=== PATIENT | female | born 1955 | race Caucasian/White ===

== ENCOUNTER → 2016-12-08 | Outpatient (CLI) | payer OTHER ==
[~2016-12-08] MED LIST: ASCO500 PO; CELE200C PO; ESTR8.1S TOP; GLUC750T13 PO; LATA0.00 OP; PRIS50TA PO; RANI150T PO; SYNT200T PO; TAB-TAB PO; TIMO0.5S29 EACH EYE
[2016-12-08 12:07] LABS: ANION GAP 5 MEQ/L (5-15); AST (GOT) 15 U/L (15-37); BICARBONATE 26.7 MEQ/L (21.0-32.0); BLOOD UREA NITROGEN 18 MG/DL (7-18); CHLORIDE 108 MEQ/L (98-107); GLOMERULAR FILTRATION RATE 92 ML/MIN (>89); GLUCOSE,FASTING 90 MG/DL (74-99); POTASSIUM 4.7 MEQ/L (3.5-5.1); SODIUM (NA) 140 MEQ/L (136-145)
[2016-12-08 12:10] LABS: ALKALINE PHOSPHATASE 89 U/L (45-117); ALT (GPT) 18 U/L (10-53); HDL CHOLESTEROL 51.7 MG/DL (40.0-60.0); LDL CHOLESTEROL 88 MG/DL (0-99); TOTAL BILIRUBIN ADULT 0.8 MG/DL (0.2-1.0)
[2016-12-08 12:14] LABS: FREE T3 2.38 PG/ML (2.18-3.98); FREE T4 1.13 NG/DL (0.76-1.46)
== END ==
LOC: CLAB 11:09
PROVIDERS: ATTEND Family Medicine
DX: I10 Essential (primary) hypertension (principal); E03.9 Hypothyroidism, unspecified
CPT/HCPCS: 36415; 80053; 80061; 84439; 84443; 84481

== ENCOUNTER → 2017-05-27 | Outpatient (CLI) | payer OTHER ==
[2017-05-27 12:18] LABS: FREE T3 2.96 PG/ML (2.18-3.98); FREE T4 1.22 NG/DL (0.76-1.46)
[2017-05-27 12:36] LABS: ALT (GPT) 25 U/L (10-53); ANION GAP 5 MEQ/L (5-15); AST (GOT) 16 U/L (15-37); BICARBONATE 28.3 MEQ/L (21.0-32.0); BLOOD UREA NITROGEN 17 MG/DL (7-18); CHLORIDE 107 MEQ/L (98-107); GLOMERULAR FILTRATION RATE 89 ML/MIN (>89); GLUCOSE,FASTING 93 MG/DL (74-99); POTASSIUM 4.2 MEQ/L (3.5-5.1); SODIUM (NA) 140 MEQ/L (136-145)
[2017-05-27 12:38] LABS: ALKALINE PHOSPHATASE 92 U/L (45-117)
== END ==
LOC: CLAB 11:05
DX: E11.65 Type 2 diabetes mellitus with hyperglycemia (principal); I10 Essential (primary) hypertension
CPT/HCPCS: 36415; 80053; 84439; 84443; 84481

== ENCOUNTER → 2017-11-03 | Outpatient (CLI) | payer OTHER ==
[~2017-11-03] MED LIST changes: +DESV25TA PO; +ESTR0.62 VAGINAL; +EVAM1.532 TOPICAL; +GLUC750C PO; +LATA0.002 EACH EYE; +LEVO.2 PO; +LISI10TA3 PO; +MULT-65 PO; +TIMO0.5S30 EACH EYE; +VITA500T83 PO
[2017-11-03 13:55] LABS: BILIRUBIN, URINE NEG (NEG); BLOOD, URINE NEG (NEG); GLUCOSE,URINE NEG (NEG); KETONE, URINE NEG (NEG); MUCUS URINE FEW /lpf (OCC); NITRITE,URINE NEG (NEG); PH, URINE 5.5 (5.0-8.5); SQUAMOUS EPITHELIAL CELL URINE 2 /hpf (0-5); URINE COLOR YELLOW (YELLW/STRAW); URINE LEUKOCYTE ESTERASE NEG (NEG)
[2017-11-03 13:59] LABS: AUTOMATED NEUTROPHIL # 3.2 TH/MM3 (1.8-7.7); BASOPHIL % 0.6 % (0.0-2.0); EOSINOPHIL # 0.5 TH/MM3 (0-0.4); EOSINOPHIL % 8.1 % (0.0-4.0); HEMATOCRIT 42.3 % (35.0-46.0); HEMOGLOBIN 14.1 GM/DL (11.6-15.3); LYMPH % 25.7 % (9.0-44.0); LYMPHOCYTE # 1.4 TH/MM3 (1.0-4.8); MEAN CELL VOLUME 92.4 FL (80.0-100.0); MEAN CORPUSCULAR HEMOGLOBIN 30.8 PG (27.0-34.0); MEAN CORPUSCULAR HGB CONC 33.4 % (32.0-36.0); MEAN PLATELET VOLUME 9.2 FL (7.0-11.0); MONO % 8.4 % (0.0-8.0); MONOCYTE # 0.5 TH/MM3 (0-0.9); NEUT % 57.2 % (16.0-70.0); PLATELET COUNT 269 TH/MM3 (150-450); RED BLOOD COUNT 4.58 MIL/MM3 (4.00-5.30); RED CELL DISTRIBUTION WIDTH 13.9 % (11.6-17.2); WHITE BLOOD COUNT 5.6 TH/MM3 (4.0-11.0)
[2017-11-03 14:19] LABS: ALBUMIN 3.8 GM/DL (3.4-5.0); AST (GOT) 15 U/L (15-37); BICARBONATE 28.7 MEQ/L (21.0-32.0); BLOOD UREA NITROGEN 18 MG/DL (7-18); CHLORIDE 108 MEQ/L (98-107); CREATININE 0.69 MG/DL (0.50-1.00); GLOMERULAR FILTRATION RATE 86 ML/MIN (>89); GLUCOSE,FASTING 86 MG/DL (74-99); SODIUM (NA) 142 MEQ/L (136-145)
[2017-11-03 14:23] LABS: ALKALINE PHOSPHATASE 79 U/L (45-117); ALT (GPT) 24 U/L (10-53); TOTAL BILIRUBIN ADULT 0.9 MG/DL (0.2-1.0); TOTAL PROTEIN 7.2 GM/DL (6.4-8.2)
--- NOTE | 2017-11-04 08:58 | EKG ---
Date Performed: 11/03/2017 Time Performed: 13:36:33 PTAGE: 62 years EKG: SINUS BRADYCARDIA BORDERLINE ECG PREVIOUS TRACING : 06/21/2014 11.41 Since the previous tracing, no significant change noted DOCTOR: Lalito Nava Interpretating Date/Time 11/04/2017 08:53:07
== END ==
LOC: CPRE 13:07
PROVIDERS: ATTEND Obstetrics & Gynecology Gynecology
DX: Z01.812 Encounter for preprocedural laboratory examination (principal); Z01.810 Encounter for preprocedural cardiovascular examination; N39.3 Stress incontinence (female) (male); R00.1 Bradycardia, unspecified
CPT/HCPCS: 36415; 80053; 81001; 85025; 93005

== ENCOUNTER → 2017-11-18 | Day surgery (SDC) | payer OTHER ==
--- NOTE | 2017-11-03 16:05 | MH ---
cc: Uzair Dennis MD DATE OF ADMISSION: 11/18/2017 REASON FOR ADMISSION: Transobturator sling, vaginal repair, skin tag removal. HISTORY OF PRESENT ILLNESS: The patient is a 62-year-old white female, 6, para 1, who had a hysterectomy and is having issues with stress urinary incontinence. The patient has had urodynamic testing that shows a leak at about 50% capacity. She also has some degree of enterocele stage II and wants to proceed with surgical correction. PAST MEDICAL HISTORY: Hypertension, gastroesophageal reflux disease and hypothyroidism, otherwise negative for heart, lung, liver disease, diabetes or stroke. MEDICATIONS: Celebrex 200 mg every day, estradiol vaginal cream, Claritin 10 mg daily, lisinopril 10 mg daily, Pristiq 50 mg daily, Synthroid 200 mcg daily, Zantac 150 mg every day. ALLERGIES: BETADINE CAUSES RASH. CODEINE, LATEX. PAST SURGICAL HISTORY: Laparoscopic supracervical hysterectomy, ocular procedure right eye. OB HISTORY: Five spontaneous ABs. One full-term delivery. SMOG TECHNICIAN HISTORY: No STDs or abnormal Pap smears. SOCIAL HISTORY: Works as a nurse. Does not use alcohol, tobacco, caffeine. FAMILY HISTORY: Noncontributory. REVIEW OF SYSTEMS: As above. No chest pain, orthopnea, PND. No nausea, vomiting, fever or chills. No vaginal bleeding or discharge. PHYSICAL EXAMINATION: VITAL SIGNS: She is afebrile. Vital signs are stable. Her blood pressure is 140/90. Height is 5 feet 9 inches, weight 180, BMI is 26. GENERAL: Alert and oriented x 3, in no acute distress, no signs of cognitive dysfunction or depression. HEENT: Within normal limits. NECK: Supple. No JVD. CHEST: Clear. HEART: Regular rate and rhythm. ABDOMEN: Soft, nontender. No hepatosplenomegaly. No CVA tenderness. PELVIC: Exam will be detailed under anesthesia. EXTREMITIES: Normal skin without rashes. NEUROLOGIC: Nonfocal. No DVT signs. ASSESSMENT AND PLAN: The patient with stress urinary incontinence with a leak at approximately 200 mL of capacity of little bit over 400. We discussed risks, benefits, and alternatives of planned procedure including damage to surrounding organs, bleeding, infection, failure of repair and also possibility of urinary retention, erosion, dyspareunia, were discussed. The patient has made informed choice to proceed. The patient also wants to have pelvic repair performed for the enterocele. She is aware of the risks, benefits and alternatives and issues regarding dyspareunia, failure of repair, pelvic pain. She has a small skin tag in the thigh and we will remove that as well at the same setting. The patient HAS ALLERGY TO BETADINE but we will be able to use Hibiclens since the vagina is not a mucous membrane. The vaginal tissues are squamous epithelium and there is no contraindication to the use of Hibiclens in the vagina. Regarding antibiotic prophylaxis, we will use Ancef 2 grams and deep venous thrombosis prophylaxis with sequential compression device. Anticipate outpatient procedure. Uzair Dennis MD CJS/TL , 03:27 PM , 04:04 PM
[~2017-11-18] VITALS: Ht 175.3 cm; Wt 86.1 kg
[~2017-11-18] MED LIST changes: +ACETAMINOPHEN 1000 MG/100 ML 100 ML IV ONE; +APREPITANT 40 MG CAP ONE; -ASCO500 PO; +CHLORHEXIDINE GLUCONATE 2 % 1 PACK (2 CLOTHS) TOPICAL PRN; +DEXAMETHASONE SOD PHOS 4 MG/ML VIAL IV ONE; +DO NOT ADM ANY ANTICOAGULANT DRUGS PRN; -ESTR8.1S TOP; +ESTROGENS CONJUGATED VAG CREA 15 APPL/30 GM TUBE ONE; +FLUORESCEIN SOD 10% SOLN 500 MG/5 ML AMP ONE; -GLUC750T13 PO; +GLYCOPYRROLATE 1 MG/5 ML SYRINGE IV PUSH ONE; +KETOROLAC TROMETHAMINE 30 MG/ML (IVP) VIAL IV PUSH ONE; +KETOROLAC TROMETHAMINE 60 MG/2 ML (IM) VIAL IM PRN; +LACTATED RINGER'S 1000 ML IV PRN; -LATA0.00 OP; +LIDOCAINE 1%/EPINEPHrine 1:100,000 SOLN 50 ML VIAL ONE; +LIDOCAINE HCL 1% PF 5 ML SYRINGE OTHER ONE; +METHYLENE BLUE 10 MG/ML VIAL ONE; +METOPROLOL TARTRATE 25 MG TAB PO PRN; +ONDANSETRON HCL 4 MG/2 ML VIAL IV ONE; +ONDANSETRON ODT 4 MG TAB PO PRN; -PRIS50TA PO; +PROPOFOL 200 MG/20 ML AMP IV ONE; +SODIUM CHLORID 0.9% 500 ML IV PRN; -SYNT200T PO; -TAB-TAB PO; -TIMO0.5S29 EACH EYE; +ceFAZolin 2 GM/DEX PREMIX 50 ML IV SCH; +ePHEDrine/NS 25 MG/5 ML SYRINGE IV ONE; +fentaNYL CITRATE 250 MCG/5 ML AMP ONE; +traMADol HCL 50 MG TAB PO PRN
[2017-11-18 10:15] VITALS: TEMP 97
--- NOTE | 2017-11-18 10:45 | MP ---
cc: Uzair Dennis MD DATE OF OPERATION: 11/18/2017 PREOPERATIVE DIAGNOSIS: 1. Stress urinary incontinence, code N93.3. 2. Rectocele and enterocele. 3. Midline cystocele. 4. Skin tag left upper thigh. POSTOPERATIVE DIAGNOSIS: 1. Stress urinary incontinence, code N93.3. 2. Rectocele and enterocele. 3. Midline cystocele. 4. Skin tag left upper thigh. PROCEDURE: 1. Transobturator sling using [place] [employer] polypropylene sling. 2. Anterior/posterior repair. 3. Removal of skin tag less than 1 cm. SURGEON: Uzair Dennis MD. ANESTHESIA: Laryngeal mask. INSPECTOR PRODUCTION PLASTIC PARTS: Caroline staff x 2. FLUIDS: 1000 mL crystalloid. URINE OUTPUT: 400 mL. FINDINGS: External genitalia, a normal Pop Q score Aa is -1, Ap is -1, point C is -8, total vaginal length is 10, general hiatus is 5, perineal body is 5. Following repair, Aa is -3, Ap is -3, point C is -8. Cystoscopy shows normal trigone, good coaptation of urethra, ureteral orifice patent x 2. Dome and base of bladder normal. Rectal exam, normal following repair. SPECIMENS: None. COMPLICATIONS: None. DISPOSITION: To recovery room stable. COUNTS: Needle and sponge counts correct. DRAINS: Damian catheter. ANTIBIOTIC PROPHYLAXIS: Ancef 2 grams. DVT PROPHYLAXIS: Sequential compression device. SUMMARY OF INDICATIONS FOR THE PROCEDURE: Patient with stress urinary incontinence with documented leak at approximately 50% capacity. She also has a symptomatic second degree rectocele and enterocele. She also has a skin tag in the upper left thigh that is bothersome to her. DESCRIPTION OF THE PROCEDURE: The patient was taken to the operating theater, identified, prepped and draped in fashion appropriate for the planned procedure. She was in the dorsal lithotomy position with careful attention paid to placement of legs in the stirrups to avoid undue stress to sensitive neurovascular structures. The above findings noted. Neurovascularly integrity documented. Damian catheter was placed. Methylene blue was instilled into the bladder. The obturator foramen were identified and infiltrated with epinephrine/lidocaine solution. A midline incision was made after infiltration of the mucosa with epinephrine/lidocaine solution. The urethra was mobilized. There was no spill of methylene blue with dissection. The C-hooks were placed from a lateral to medial position with no spill of methylene blue. The polypropylene sling was placed in the mid urethra and brought up against the urethra using a scalpel handle as a spacer, so there was no undue tension on the midurethral portion. Anterior repair performed in standard fashion with delayed absorbable suture. Hemostatic matrix used for hemostasis to avoid need for packing. Cystoscopy was performed with a 17-Hungarian bridge, and a 70-degree scope with the above findings noted. The posterior repair was performed in standard fashion after infiltration with epinephrine/lidocaine solution. The enterocele was closed with an interrupted suture. The vaginal mucosa was trimmed and closed with a running Vicryl suture with good anatomic hemostatic result. The patient tolerated well and arrived to the recovery room in stable condition. MD JEOVANY Archer/ELMO , 10:16 AM , 10:43 AM
[2017-11-18 11:38] VITALS: BP 147/83; PULSE 52; RESP 16; O2SAT 98
== END | disposition home or self-care (01) ==
LOC: HSDC 06:01
PROVIDERS: ATTEND Obstetrics & Gynecology Gynecology
DX: N39.3 Stress incontinence (female) (male) (principal); N81.6 Rectocele; N81.5 Vaginal enterocele; N81.11 Cystocele, midline; L91.8 Other hypertrophic disorders of the skin
CPT/HCPCS: 00942; 11200; 57265; 57288; C1771; J0131; J0690; J1100; J1885; J2405; J3010; J7120; J8501

== ENCOUNTER → 2017-12-24 | Outpatient (CLI) | payer OTHER ==
[~2017-12-24] MED LIST changes: -ACETAMINOPHEN 1000 MG/100 ML 100 ML IV ONE; -APREPITANT 40 MG CAP ONE; -CHLORHEXIDINE GLUCONATE 2 % 1 PACK (2 CLOTHS) TOPICAL PRN; -DEXAMETHASONE SOD PHOS 4 MG/ML VIAL IV ONE; -DO NOT ADM ANY ANTICOAGULANT DRUGS PRN; -ESTROGENS CONJUGATED VAG CREA 15 APPL/30 GM TUBE ONE; -FLUORESCEIN SOD 10% SOLN 500 MG/5 ML AMP ONE; -GLYCOPYRROLATE 1 MG/5 ML SYRINGE IV PUSH ONE; -KETOROLAC TROMETHAMINE 30 MG/ML (IVP) VIAL IV PUSH ONE; -KETOROLAC TROMETHAMINE 60 MG/2 ML (IM) VIAL IM PRN; -LACTATED RINGER'S 1000 ML IV PRN; -LIDOCAINE 1%/EPINEPHrine 1:100,000 SOLN 50 ML VIAL ONE; -LIDOCAINE HCL 1% PF 5 ML SYRINGE OTHER ONE; -METHYLENE BLUE 10 MG/ML VIAL ONE; -METOPROLOL TARTRATE 25 MG TAB PO PRN; -ONDANSETRON HCL 4 MG/2 ML VIAL IV ONE; -ONDANSETRON ODT 4 MG TAB PO PRN; -PROPOFOL 200 MG/20 ML AMP IV ONE; -SODIUM CHLORID 0.9% 500 ML IV PRN; -ceFAZolin 2 GM/DEX PREMIX 50 ML IV SCH; -ePHEDrine/NS 25 MG/5 ML SYRINGE IV ONE; -fentaNYL CITRATE 250 MCG/5 ML AMP ONE; -traMADol HCL 50 MG TAB PO PRN
[2017-12-24 13:01] LABS: ALBUMIN 3.8 GM/DL (3.4-5.0); ALT (GPT) 18 U/L (10-53); AST (GOT) 15 U/L (15-37); BICARBONATE 25.8 MEQ/L (21.0-32.0); BLOOD UREA NITROGEN 14 MG/DL (7-18); CALCIUM 8.4 MG/DL (8.5-10.1); CHLORIDE 109 MEQ/L (98-107); CREATININE 0.67 MG/DL (0.50-1.00); GLOMERULAR FILTRATION RATE 89 ML/MIN (>89); GLUCOSE,FASTING 91 MG/DL (74-99); SODIUM (NA) 142 MEQ/L (136-145)
[2017-12-24 13:11] LABS: ALKALINE PHOSPHATASE 85 U/L (45-117); THYROXINE (T4) 14.3 MCG/DL (4.8-13.9); TOTAL BILIRUBIN ADULT 1.3 MG/DL (0.2-1.0)
== END ==
LOC: CLAB 12:07
PROVIDERS: ATTEND Family Medicine
DX: E06.3 Autoimmune thyroiditis (principal); I10 Essential (primary) hypertension
CPT/HCPCS: 36415; 80053; 84436; 84443; 84480